=== PATIENT | male | born 1980 | race American Indian/Alaskan Native ===

== ENCOUNTER 2017-02-19 21:52 | Observation (INO) | payer MEDICAID ==
--- NOTE | 2017-02-19 22:44 | C.PDOC ---
History Of Present Illness Patient is a 36 year old male brought in by EMS for poly substance abuse. Patient was [place] earlier today [place] [facility] [place]. Patient was found in the street agitated and combative. Patient has not verbalized any complaints at this time. Time Seen by Provider: 02/19/17 22:22 Chief Complaint (Nursing): Substance Abuse History Per: Patient History/Exam Limitations: no limitations Onset/Duration Of Symptoms: Hrs Current Symptoms Are (Timing): Still Present Suicide/Self Injury Attempted (Context): None Modifying Factor(s): Other (Substance abuse) Associated Symptoms: Agitation, Other (Combative) Recent travel outside of the [place]: No Past Medical History Reviewed: Historical Data, Nursing Documentation, Vital Signs Vital Signs: Last Vital Signs Temp 97.7 F 02/19/17 21:57 Pulse 120 H 02/19/17 21:57 Resp 26 H 02/19/17 21:57 BP 131/77 02/19/17 21:57 Pulse Ox 100 02/19/17 23:00 - Medical History PMH: No Chronic Diseases Surgical History: No Surg Hx Family History: States: Unknown Family Hx - Social History Hx Alcohol Use: Yes Hx Substance Use: Yes Review Of Systems Review Of Systems: ROS cannot be obtained secondary to pt's inabilty to answer questions. Physical Exam - Physical Exam Appears: Non-toxic, Other (nonverbal) Skin: Normal Color, Warm, Dry Head: Atraumatic, Normacephalic Eye(s): bilateral: Normal Inspection, PERRL, EOMI, Other (No pin point pupils) Oral Mucosa: Moist Chest: Symmetrical, No Tenderness Cardiovascular: Rhythm Regular, No Murmur Respiratory: Normal Breath Sounds, No Rales, No Rhonchi, No Wheezing Gastrointestinal/Abdominal: Soft, No Tenderness Extremity: Normal ROM (x4 all extremities), Other (Abrasion right shoulder) ED Course And Treatment - Laboratory Results Result Diagrams: 02/19/17 23:28 02/19/17 23:28 Lab Interpretation: No Acute Changes O2 Sat by Pulse Oximetry: 100 (Room air) Pulse Ox Interpretation: Normal Progress Note: Blood work and urinalysis ordered. Reevaluation Time: 00:32 Reassessment Condition: Improved (Slightly more responsive, quiet but 4 pt restraints maintained for safety.) Disposition - Disposition Disposition Time: 00:34 Condition: IMPROVED - Clinical Impression Clinical Impression: Drug abuse - Scribe Statement The provider has reviewed the documentation as recorded by the Scribe Gerald Schultz All medical record entries made by the Scribe were at my direction and personally dictated by me. I have reviewed the chart and agree that the record accurately reflects my personal performance of the history, physical exam, medical decision making, and the department course for this patient. I have also personally directed, reviewed, and agree with the discharge instructions and disposition. Physician Patient Turnover Patient Signed Over To: Ronda Gonzalez Handoff Comments: pending sobriety
[2017-02-19 23:31] LABS: BASO % 0.4 % (0.0-2.0); EOS % 0.4 % (0.0-4.0); LYMPH # 1.7 K/uL (1.0-4.3); LYMPH % 29.2 % (20.0-40.0); MEAN CELL VOLUME 89.6 fL (80.0-94.0); MEAN CORPUSCULAR HEMOGLOBIN 29.5 pg (27.0-31.0); MEAN CORPUSCULAR HGB CONC 32.9 g/dL (33.0-37.0); MEAN PLATELET VOLUME 8.3 fL (7.2-11.7); MONO # 0.5 K/uL (0.0-0.8); MONO % 9.3 % (0.0-10.0); NRBC % 0.1 % (0.0-2.0); RED CELL DISTRIBUTION WIDTH 13.2 % (11.5-14.5); WHITE BLOOD COUNT 5.9 K/uL (4.8-10.8)
[2017-02-19 23:37] LABS: CHLORIDE 106 mmol/L (98-107)
[2017-02-19 23:38] LABS: SODIUM 141 mmol/L (132-148)
[2017-02-19 23:39] LABS: POTASSIUM 3.3 mmol/L (3.6-5.2)
[2017-02-19 23:41] LABS: ALB/GLOB RATIO 1.4 (1.0-2.1); ALKALINE PHOSPHATASE 70 U/L (38-126); ALT/SGPT 25 U/L (21-72); AST/SGOT 33 U/L (17-59); BILIRUBIN,TOTAL 0.7 mg/dL (0.2-1.3); BLOOD UREA NITROGEN 14 mg/dL (9-20); CALCIUM 8.8 mg/dl (8.6-10.4); CARBON DIOXIDE 28 mmol/L (22-30); GFR AFRICAN-AMERICAN > 60; GLUCOSE,RANDOM 95 mg/dL (75-110); TOTAL PROTEIN 6.7 g/dL (6.3-8.3)
[2017-02-19 23:42] LABS: ALCOHOL SERUM < 10 mg/dl (0-10)
[2017-02-20] MEDS ORDERED: Sodium Chloride 0.9% 2,000 ML IV ONE (01:00)
[2017-02-20 05:39] VITALS: BP 97/59; PULSE 59; RESP 20; TEMP 98.4; O2SAT 99
== END 2017-02-20 05:29 | disposition home or self-care (01) ==
LOC: C.ER 21:52 → C.9OBSV 23:51
PROVIDERS: ADMIT Emergency Medicine; ATTEND Emergency Medicine
DX: F16.10 Hallucinogen abuse, uncomplicated (principal); Z78.1 Physical restraint status
CPT/HCPCS: 80053; 80320; 82948; 85025; 96360; G0378; J7040